=== PATIENT | female | born 1965 ===

== ENCOUNTER 2017-04-23 07:53 | Emergency (ER) | payer OTHER ==
[2017-04-23 08:05] VITALS: RESP 20
--- NOTE | 2017-04-23 08:20 | C.PDOC ---
History Of Present Illness 51 year old female with HTN accompanied by her son presents to the ED c/o upper abdominal and vomit that started this am. As per Son other family members have similar complaints. Patient denies fever, diarrhea. Time Seen by Provider: 04/23/17 07:55 Chief Complaint (Nursing): Abdominal Pain History Per: Patient, Family History/Exam Limitations: language barrier Onset/Duration Of Symptoms: Days (1) Severity: Mild Location Of Pain/Discomfort: Epigastric Radiation Of Pain To:: None Quality Of Discomfort: Dull, Burning Associated Symptoms: Nausea, Vomiting Exacerbating Factors: None Alleviating Factors: None Recent travel outside of the [place]: No Additional History Per: Patient Abnormal Vaginal Bleeding: No Past Medical History Reviewed: Historical Data, Nursing Documentation, Vital Signs Vital Signs: Last Vital Signs Temp 100.5 F H 04/23/17 11:50 Pulse 78 04/23/17 11:50 Resp 20 04/23/17 11:50 BP 99/64 L 04/23/17 11:50 Pulse Ox 100 04/23/17 12:01 - Medical History PMH: Arthritis, HTN Surgical History: No Surg Hx Family History: States: Unknown Family Hx - Social History Hx Tobacco Use: No Hx Alcohol Use: No Hx Substance Use: No - Immunization History Hx Tetanus Toxoid Vaccination: No Hx Influenza Vaccination: No Hx Pneumococcal Vaccination: No Review Of Systems Constitutional: Negative for: Fever Cardiovascular: Negative for: Chest Pain Respiratory: Negative for: Cough Gastrointestinal: Positive for: Nausea, Vomiting, Abdominal Pain Physical Exam - Physical Exam Appears: Non-toxic, No Acute Distress Skin: Normal Color Oral Mucosa: Moist Neck: Normal Cardiovascular: Rhythm Regular Respiratory: Normal Breath Sounds Gastrointestinal/Abdominal: Soft, Tenderness (epigastric) Back: Normal Inspection Extremity: Normal ROM Neurological/Psych: Oriented x3 Gait: Steady ED Course And Treatment - Laboratory Results Result Diagrams: 04/23/17 08:50 04/23/17 08:50 Lab Interpretation: Abnormal Interpretation Of Abnormal: wbc ECG: Interpreted By Ar ECG Rhythm: Sinus Rhythm ECG Interpretation: Normal Rate From EC O2 Sat by Pulse Oximetry: 100 (On RA) Pulse Ox Interpretation: Normal - CT Scan/US CT Abdomen/Pelvis Other Rad Studies (CT/US): Read By Radiologist, Radiology Report Reviewed CT/US Interpretation: FINDINGS: There is limited evaluation of the solid organs without the administration of IV contrast. LOWER THORAX: No visible consolidation, pleural effusion, or pneumothorax. Small hiatal hernia/distal esophageal wall thickening. LIVER: Unremarkable unenhanced appearance. GALLBLADDER AND BILE DUCTS: Unremarkable unenhanced appearance. PANCREAS: Unremarkable unenhanced appearance. SPLEEN: Unremarkable unenhanced appearance. ADRENALS: Unremarkable unenhanced appearance. KIDNEYS AND URETERS : No hydronephrosis or obstructing renal calculus. 4 mm too small to characterize posterior left upper pole renal hypodensity ; statistically likely a cyst. BLADDER: The urinary bladder appears unremarkable. REPRODUCTIVE: Uterus is present. APPENDIX: The appendix appears within normal limits of caliber. High-density noted within the proximal appendix, possibly appendicolith or milk of calcium. No secondary signs of acute appendicitis. BOWEL: The stomach is nondistended. Lack of oral contrast limits evaluation for bowel pathology. The bowel loops appear within normal limits of caliber without evidence of intestinal obstruction. PERITONEUM: No significant free fluid. No definite free air. LYMPH NODES: No bulky lymphadenopathy identified. VASCULATURE: No aortic aneurysm. BONES: Degenerative changes. OTHER FINDINGS: None. IMPRESSION: No acute findings identified. See above. Progress Note: Treated with IVF NSS, zofran, pepcid, and toradol. On re- evaluation abdomen soft feeling better, tolerating PO Reassessment Condition: Improved Medical Decision Making Medical Decision Making: Plan: * IV fluids given * Pepcid 20 mg IVP given * Toradol 30 mg IVP given * Zofran 4 mg IVP given * UA ordered * Blood work ordered * EKG ordered * CT abdo/pelvis ordered Disposition Counseled Patient/Family Regarding: Studies Performed, Diagnosis, Need For Followup, Rx Given - Disposition Referrals: [facility] [Outside] [facility] [Outside] Disposition: HOME/ ROUTINE Disposition Time: 11:45 Condition: STABLE Additional Instructions: Follow up with PMD or clinic for further evaluation Prescriptions: Famotidine/Ca Carb/Mag Hydrox [Pepcid Complete Tablet Chew] 1 each PO BID #12 tab.chew Ondansetron ODT [Zofran ODT] 1 odt PO BID PRN #6 odt PRN Reason: Nausea/Vomiting Instructions: Acute Nausea and Vomiting (ED) Forms: [employer] ([place] Citizen) Print Language: WELSH - POA Present On Arrival: None - Clinical Impression Clinical Impression: Nausea, Vomiting, Abdominal pain - PA / SUPERVISOR [employer] / Resident Statement MD/DO has reviewed & agrees with the documentation as recorded. - Scribe Statement The provider has reviewed the documentation as recorded by the Scribe Orlando Nuñez All medical record entries made by the Aleshaibe were at my direction and personally dictated by me. I have reviewed the chart and agree that the record accurately reflects my personal performance of the history, physical exam, medical decision making, and the department course for this patient. I have also personally directed, reviewed, and agree with the discharge instructions and disposition.
[2017-04-23] MEDS ORDERED: Sodium Chloride 0.9% 1,000 ML IV ONE (08:22)
[2017-04-23] MEDS ORDERED: Sodium Chloride 0.9% 1,000 ML ONE (08:38)
[2017-04-23 09:02] LABS: BASO % 0.2 % (0.0-2.0); EOS # 0.1 K/uL (0.0-0.7); EOS % 0.3 % (0.0-4.0); HEMATOCRIT 43.4 % (34.0-47.0); LYMPH # 3.1 K/uL (1.0-4.3); LYMPH % 14.1 % (20.0-40.0); MEAN CORPUSCULAR HEMOGLOBIN 29.5 pg (27.0-31.0); MEAN PLATELET VOLUME 10.6 fL (7.2-11.7); MONO # 1.7 K/uL (0.0-0.8); MONO % 7.9 % (0.0-10.0); RED CELL DISTRIBUTION WIDTH 13.5 % (11.5-14.5); WHITE BLOOD COUNT 21.6 K/uL (4.8-10.8)
[2017-04-23 09:09] LABS: ALKALINE PHOSPHATASE 57 U/L (38-126); ALT/SGPT 68 U/L (9-52); AST/SGOT 26 U/L (14-36); BILIRUBIN,TOTAL 0.4 mg/dL (0.2-1.3); BLOOD UREA NITROGEN 19 mg/dL (7-17); CALCIUM 8.8 mg/dl (8.6-10.4); CARBON DIOXIDE 32 mmol/L (22-30); CHLORIDE 104 mmol/L (98-107); GFR AFRICAN-AMERICAN > 60; GLUCOSE,RANDOM 117 mg/dL (65-105); POTASSIUM 3.9 mmol/L (3.6-5.2); SODIUM 144 mmol/L (132-148); TOTAL PROTEIN 8.9 g/dL (6.3-8.3)
[2017-04-23 09:13] LABS: ALB/GLOB RATIO 0.8 (1.0-2.1)
[2017-04-23 09:20] LABS: URINE BILIRUBIN NEGATIVE (NEGATIVE); URINE BLOOD NEGATIVE (NEGATIVE); URINE COLOR Yellow (YELLOW); URINE GLUCOSE (UA) NORMAL (Normal); URINE KETONE NEGATIVE (NEGATIVE); URINE LEUKOCYTE ESTERASE NEG Leu/uL (Negative); URINE PROTEIN NEGATIVE (NEGATIVE); URINE UROBILINOGEN NORMAL mg/dL (0.2-1.0)
[2017-04-23 09:29] LABS: WBC URINE 1 /hpf (0-5)
--- NOTE | 2017-04-23 11:11 | CT ---
PROCEDURE: CT Abdomen and Pelvis without Oral or IV contrast. HISTORY: Pain COMPARISON: CT of the abdomen and pelvis with contrast performed 09/28/13 TECHNIQUE: Contiguous axial images of the abdomen and pelvis. No oral or IV contrast administered. Coronal and Sagittal reformats generated. Radiation dose: Total exam DLP = 664.81 mGy-cm. This CT exam was performed using one or more of the following dose reduction techniques: Automated exposure control, adjustment of the mA and/or kV according to patient size, and/or use of iterative reconstruction technique. FINDINGS: There is limited evaluation of the solid organs without the administration of IV contrast. LOWER THORAX: No visible consolidation, pleural effusion, or pneumothorax. Small hiatal hernia/distal esophageal wall thickening. LIVER: Unremarkable unenhanced appearance. GALLBLADDER AND BILE DUCTS: Unremarkable unenhanced appearance. PANCREAS: Unremarkable unenhanced appearance. SPLEEN: Unremarkable unenhanced appearance. ADRENALS: Unremarkable unenhanced appearance. KIDNEYS AND URETERS: No hydronephrosis or obstructing renal calculus. 4 mm too small to characterize posterior left upper pole renal hypodensity ; statistically likely a cyst. BLADDER: The urinary bladder appears unremarkable. REPRODUCTIVE: Uterus is present. APPENDIX: The appendix appears within normal limits of caliber. High-density noted within the proximal appendix, possibly appendicolith or milk of calcium. No secondary signs of acute appendicitis. BOWEL: The stomach is nondistended. Lack of oral contrast limits evaluation for bowel pathology. The bowel loops appear within normal limits of caliber without evidence of intestinal obstruction. PERITONEUM: No significant free fluid. No definite free air. LYMPH NODES: No bulky lymphadenopathy identified. VASCULATURE: No aortic aneurysm. BONES: Degenerative changes. OTHER FINDINGS: None. IMPRESSION: No acute findings identified. See above.
[2017-04-23 11:50] VITALS: BP 99/64; PULSE 78; TEMP 100.5
[2017-04-23 12:02] VITALS: O2SAT 100
--- NOTE | 2017-04-28 03:23 | CARD ---
APPROVED REPORT EKG Measurement Heart [id number] <Conclusion> Normal sinus rhythm Nonspecific T wave abnormality Abnormal ECG
== END 2017-04-23 12:07 | disposition home or self-care (01) ==
LOC: C.ER 07:53
DX: R10.13 Epigastric pain (principal); R11.2 Nausea with vomiting, unspecified
CPT/HCPCS: 74176; 80053; 81001; 83690; 85025; 93005; 96361; 96374; 96375; 99285; J1885; J2405; J7040

== ENCOUNTER 2017-10-09 16:43 | Emergency (ER) | payer OTHER, MEDICAID ==
[2017-10-09] MEDS ORDERED: Promethazine/Cod 6.25mg-10mg/5ml Syr UD PO STA (17:48)
[2017-10-09] MEDS ORDERED: Promethazine/Cod 6.25mg-10mg/5ml Syr UD ONE (18:20)
--- NOTE | 2017-10-09 18:24 | RAD ---
Chest x-ray two views History: Cough. Comparison: 11/08/2015 Findings: Mild venous congestion. Bibasilar breast and nipple shadows. Heart size within normal limits. Degenerative changes in the spine. Impression: Mild venous congestion.
--- NOTE | 2017-10-09 18:34 | C.PDOC ---
History Of Present Illness 52 yo female w/PMhx of asthma come in for evaluation of cold sx for apst 2 weeks associated with nasal congestion, runny nose, productive cough with white sputum. Since yesterday, developed mild chest tightness. Otherwise, pt denies high fever, chills, headache, dizziness, neck pain, drooling, dysphagia, dyspnea , CP, wheezing, abd. pain, V/D, back pain. Ambulate to Ed for evaluation, not in nay apparent distress. Time Seen by Provider: 10/09/17 17:23 Chief Complaint (Nursing): Cough, Cold, Congestion History Per: Patient Onset/Duration Of Symptoms: Gradual Past Medical History Reviewed: Historical Data, Nursing Documentation, Vital Signs Vital Signs: Last Vital Signs Temp 98.6 F 10/09/17 18:50 Pulse 85 10/09/17 18:50 Resp 18 10/09/17 18:50 BP 123/70 10/09/17 18:50 Pulse Ox 100 10/09/17 18:50 - Medical History PMH: Arthritis, HTN Surgical History: No Surg Hx Family History: States: Unknown Family Hx - Social History Hx Tobacco Use: No Hx Alcohol Use: No Hx Substance Use: No - Immunization History Hx Tetanus Toxoid Vaccination: No Hx Influenza Vaccination: No Hx Pneumococcal Vaccination: No Review Of Systems Except As Marked, All Systems Reviewed And Found Negative. Constitutional: Negative for: Fever, Chills ENT: Positive for: Nose Discharge, Nose Congestion. Negative for: Ear Pain, Ear Discharge, Throat Swelling Cardiovascular: Negative for: Chest Pain, Palpitations, Edema, Light Headedness Respiratory: Positive for: Cough, Wheezing. Negative for: Shortness of Breath Gastrointestinal: Negative for: Nausea, Vomiting, Abdominal Pain, Diarrhea Genitourinary: Negative for: Dysuria Musculoskeletal: Negative for: Neck Pain Skin: Negative for: Rash Neurological: Negative for: Altered Mental Status, Headache, Dizziness Physical Exam - Physical Exam Appears: Well, Non-toxic, No Acute Distress Skin: Normal Color, Warm, Dry, No Rash Head: Normacephalic Eye(s): bilateral: PERRL Ear(s): Bilateral: Normal Nose: No Flaring, Discharge (B/L nasal congestion with scant clear rhinorrhea) Oral Mucosa: Moist, No Drooling Tongue: Normal Appearing Lips: Normal Appearing Throat: Erythema (mild B/L), No Exudate, No Drooling Neck: Trachea Midline, Supple Cardiovascular: Rhythm Regular Respiratory: No Decreased Breath Sounds, No Accessory Muscle Use, No Rales, No Rhonchi, No Stridor, Wheezing (scattered Right base exp wheezing) Gastrointestinal/Abdominal: Soft, No Tenderness, No Distention, No Guarding Extremity: Normal ROM, No Deformity, No Swelling Neurological/Psych: Oriented x3, Normal Speech ED Course And Treatment O2 Sat by Pulse Oximetry: 99 Pulse Ox Interpretation: Normal - Radiology CXR: Interpreted by Me, Viewed By Me CXR Interpretation: Yes: No Acute Disease Progress Note: On re-evaluation, pt is afebrile, hemodynamicaly stable. NOn- toxic. Tolerate po well in ED. PulsEOx 99% RA. ENT: no acute findings. neck: SUpple, (-) meningeal sign. Lungs: CTA B/L, BS equal B/L. CVS: (+)S1S2, reg. Abd: benign, (-) guarding, (-) rebound. Neurologicaly intact. CXR (-) acute findings. Pt has clinical findings c/w acute bronchitis, seasonal allergy. Pt advised on course of ds. Ref. to F/u with PMD in 2-3 days for re-eval. return to ED if any worsening or new changes. Disposition Counseled Patient/Family Regarding: Studies Performed, Diagnosis, Need For Followup, Rx Given - Disposition Referrals: Domi Melo MD [Medical Doctor] - Disposition: HOME/ ROUTINE Disposition Time: 18:10 Condition: STABLE Additional Instructions: Encourage fluids Take medication as prescribed Follow up with PMD in 2-3 days for re-evaluation. return to Ed if any worsening or new changes. Prescriptions: Azithromycin [Zithromax] 250 mg PO DAILY #4 tab Benzonatate [Tessalon Perle] 100 mg PO TID #14 capsule Prednisone [Deltasone] 20 mg PO DAILY #3 tablet Instructions: Acute Bronchitis Forms: [employer] ([place]) Print Language: BERMUDIAN - Clinical Impression Clinical Impression: Bronchitis
[2017-10-09 18:50] VITALS: BP 123/70; PULSE 85; RESP 18; TEMP 98.6
[2017-10-10 12:58] VITALS: O2SAT 99
== END 2017-10-09 18:51 | disposition home or self-care (01) ==
LOC: C.ER 16:43
DX: J40 Bronchitis, not specified as acute or chronic (principal); I10 Essential (primary) hypertension

== ENCOUNTER 2017-11-08 00:38 | Emergency (ER) | payer OTHER, MEDICAID ==
--- NOTE | 2017-11-08 01:07 | C.PDOC ---
History Of Present Illness 52 year old female with PMHx of rheumatoid arthritis and lupus presents to the ED for evaluation of right shoulder pain for the past 3 days. Patient reports she is currently being seen by a Supervisor Instrument Maintenance. Patient denies fall, trauma, weakness, numbness, CP, SOB. Chief Complaint (Nursing): Upper Extremity Problem/Injury History Per: Patient History/Exam Limitations: no limitations Onset/Duration Of Symptoms: Days (3) Current Symptoms Are (Timing): Still Present Quality: "Pain" Exacerbating Factor(s): Movement Recent travel outside of the [place]: No Additional History Per: Patient Past Medical History Reviewed: Historical Data, Nursing Documentation, Vital Signs Vital Signs: Last Vital Signs Temp 98.5 F 11/08/17 00:55 Pulse 74 11/08/17 00:55 Resp 20 11/08/17 00:55 BP 123/82 11/08/17 00:55 Pulse Ox 99 11/08/17 03:56 - Medical History PMH: Arthritis, HTN, Rheumatoid Arthritis Other PMH: Lupus Surgical History: No Surg Hx Family History: States: Unknown Family Hx - Social History Hx Tobacco Use: No Hx Alcohol Use: No Hx Substance Use: No - Immunization History Hx Tetanus Toxoid Vaccination: No Hx Influenza Vaccination: No Hx Pneumococcal Vaccination: No Review Of Systems Constitutional: Negative for: Fever, Chills Cardiovascular: Negative for: Chest Pain Respiratory: Negative for: Shortness of Breath Gastrointestinal: Negative for: Nausea, Vomiting Musculoskeletal: Positive for: Shoulder Pain Skin: Negative for: Rash Neurological: Negative for: Weakness, Numbness, Headache Physical Exam - Physical Exam Appears: Non-toxic, No Acute Distress Skin: Normal Color, Warm, Dry Head: Atraumatic, Normacephalic Eye(s): bilateral: Normal Inspection Oral Mucosa: Moist Neck: Normal ROM, Supple Chest: Symmetrical Cardiovascular: Rhythm Regular Respiratory: Normal Breath Sounds, No Rales, No Rhonchi, No Wheezing Gastrointestinal/Abdominal: Soft, No Tenderness, No Guarding, No Rebound Back: Normal Inspection Extremity: Normal ROM, Tenderness (right shoulder ), Capillary Refill (< 2 seconds) Pulses: Left Radial: Normal, Right Radial: Normal Neurological/Psych: Oriented x3, Normal Speech, Normal Motor, Normal Sensation Gait: Steady ED Course And Treatment O2 Sat by Pulse Oximetry: 99 (ON RA) Pulse Ox Interpretation: Normal - Other Rad right shoulder xray X-Ray: Interpreted by Me Interpretation: calcific tendonitis Progress Note: Plan: - Lidoderm 1 ea TD. - Percocet 1 tab PO. - Right shoulder X-Ray Disposition - Disposition Referrals: Priti Flores MD [Staff Provider] - Disposition Time: 03:52 Condition: STABLE Additional Instructions: Follow up with your PMD and Orthopedist within 1-2 days. Return to ED if feel worse. Prescriptions: Lidocaine 5% [Lidoderm] 1 patch TP DAILY #30 patch Naproxen [Naprosyn] 1 tab PO BID PRN #25 tab PRN Reason: Pain Instructions: Calcific Tendonitis of the Shoulder (DC) Forms: [employer] (Faroese) Print Language: CUBAN - Clinical Impression Clinical Impression: Shoulder pain, acute - PA / DATA COORDINATOR / Resident Statement MD/DO has reviewed & agrees with the documentation as recorded. - Scribe Statement The provider has reviewed the documentation as recorded by the Scribe Orlando Nuñez All medical record entries made by the Scribe were at my direction and personally dictated by me. I have reviewed the chart and agree that the record accurately reflects my personal performance of the history, physical exam, medical decision making, and the department course for this patient. I have also personally directed, reviewed, and agree with the discharge instructions and disposition.
[2017-11-08] MEDS ORDERED: Oxycodone/Acetaminophen 5/325 mg Tab PO STA (01:08)
[2017-11-08] MEDS ORDERED: Lidocaine 5% Patch TD STA (01:08)
[2017-11-08] MEDS ORDERED: Oxycodone/Acetaminophen 5/325 mg Tab ONE (01:36)
[2017-11-08] MEDS ORDERED: Lidocaine 5% Patch TD ONE (01:36)
[2017-11-08 04:13] VITALS: BP 109/72; PULSE 68; RESP 18; TEMP 98.9
[2017-11-08 04:50] VITALS: O2SAT 99
--- NOTE | 2017-11-08 17:29 | RAD ---
PROCEDURE: Radiographs of the Right Shoulder HISTORY: pain, atraumatic COMPARISON: No prior. FINDINGS: BONES: Bone alignment and mineralization are normal. There is no acute displaced fracture or bone destruction. JOINTS: Normal. Glenohumeral and acromioclavicular joints preserved. No osteoarthritis. SOFT TISSUES: There is multilobular calcification lateral to the humeral head. OTHER FINDINGS: None. IMPRESSION: No acute fracture or dislocation. Multilobular calcification lateral to the humeral head may represent calcific tendinitis.
== END 2017-11-08 04:14 | disposition home or self-care (01) ==
LOC: C.ER 00:38
DX: M25.511 Pain in right shoulder (principal)

== ENCOUNTER 2017-12-26 17:17 | Emergency (ER) | payer MEDICAID ==
[2017-12-26 17:50] VITALS: BMI 29.7
[2017-12-26 17:53] VITALS: BP 144/78; PULSE 68; RESP 18; TEMP 98.4; O2SAT 98
--- NOTE | 2017-12-26 18:45 | RAD ---
Date of service: 12/26/2017 PROCEDURE: Right Ankle Radiographs. HISTORY: twisted ankle COMPARISON: None FINDINGS: BONES: Normal. No fracture. JOINTS: Normal. No osteoarthritis. Ankle mortise maintained. Talar dome intact SOFT TISSUES: Lateral soft tissue swelling without distal fibular or talar abnormality. OTHER FINDINGS: None. IMPRESSION: Soft tissue swelling without acute articular or osseous abnormality.
--- NOTE | 2017-12-26 18:46 | C.PDOC ---
History Of Present Illness 52 y/o female patient presents to the ER with c/o right ankle pain and swelling. Patient reports she was walking and twisted her ankle yesterday. Pain scale 6/10 on rest but more pain when walking. Patient denies numbness and weakness. Time Seen by Provider: 12/26/17 17:56 Chief Complaint (Nursing): Lower Extremity Problem/Injury History Per: Patient History/Exam Limitations: no limitations Onset/Duration Of Symptoms: Hrs Current Symptoms Are (Timing): Still Present Pain Scale Rating Of: 6 - Ankle/Foot Description Of Injury: Twisted Past Medical History Reviewed: Historical Data, Nursing Documentation, Vital Signs Vital Signs: Last Vital Signs Temp 98.4 F 12/26/17 17:51 Pulse 68 12/26/17 17:51 Resp 18 12/26/17 17:51 BP 144/78 12/26/17 17:51 Pulse Ox 98 12/26/17 18:46 - Medical History PMH: Arthritis, HTN, Rheumatoid Arthritis Family History: States: Unknown Family Hx - Social History Hx Tobacco Use: No Hx Alcohol Use: No Hx Substance Use: No - Immunization History Hx Tetanus Toxoid Vaccination: No Hx Influenza Vaccination: No Hx Pneumococcal Vaccination: No Review Of Systems Except As Marked, All Systems Reviewed And Found Negative. Musculoskeletal: Positive for: Foot Pain (right ankle pain and swelling ) Neurological: Negative for: Weakness, Numbness Physical Exam - Physical Exam Appears: Well, Non-toxic, No Acute Distress Skin: Normal Color, Warm, Dry Head: Atraumatic, Normacephalic Respiratory: No Accessory Muscle Use, Other (speaking in full sentences) Extremity: Tenderness (lateral malleolus ), No Pedal Edema, No Calf Tenderness, Capillary Refill (<2 sec), No Deformity, Swelling (lateral malleolus ) Extremity: Right: Painful To Bear Weight Pulses: Left Dorsalis Pedis: Normal, Right Dorsalis Pedis: Normal Neurological/Psych: Oriented x3, Normal Speech ED Course And Treatment O2 Sat by Pulse Oximetry: 98 (RA) Pulse Ox Interpretation: Normal Medical Decision Making Medical Decision Making: Impression: right ankle pain and swelling on lateral malleolus. Plans: -- Ibuprofen -- XR right ankle Reassess: TERRANCE wrap was placed on right ankle. Patient is resting comfortably and reports she is feeling better. Pateint is discharged with motrin and is advised to f/u with neighborhood clinic in 1-2 days. Disposition Counseled Patient/Family Regarding: Studies Performed, Diagnosis, Need For Followup, Rx Given - Disposition Referrals: [facility] [Outside] Disposition: HOME/ ROUTINE Disposition Time: 18:44 Condition: STABLE Prescriptions: Ibuprofen [Motrin] 600 mg PO TID #12 tab Instructions: Ankle Sprain (DC) Forms: Gen Discharge Inst Mal[place]ian, [employer] (Mal[place]ian) - Clinical Impression Clinical Impression: Right ankle sprain - Scribe Statement The provider has reviewed the documentation as recorded by the Surendra Noel Do Provider Attestation: All medical record entries made by the Aleshaibshantell were at my direction and personally dictated by me. I have reviewed the chart and agree that the record accurately reflects my personal performance of the history, physical exam, medical decision making, and the department course for this patient. I have also personally directed, reviewed, and agree with the discharge instructions and disposition.
== END 2017-12-26 18:51 | disposition home or self-care (01) ==
LOC: C.ER 17:17
DX: S93.401A Sprain of unspecified ligament of right ankle, initial encounter (principal); X50.1XXA Overexertion from prolonged static or awkward postures, initial encounter; Y93.01 Activity, walking, marching and hiking; I10 Essential (primary) hypertension; M06.9 Rheumatoid arthritis, unspecified

== ENCOUNTER 2018-06-24 23:26 | Emergency (ER) | payer MEDICAID, OTHER ==
[2018-06-24 23:26] VITALS: BMI 29.7
[2018-06-24 23:31] VITALS: BP 139/83; PULSE 84; TEMP 98.4; O2SAT 100
--- NOTE | 2018-06-25 00:11 | C.PDOC ---
History Of Present Illness 53 year old female presents with right shoulder pain. Patient had MRI of right shoulder in 02/2018, found to have tear, at the time she had insurance but now has medicare and has not been able to follow up with her orthopedist. She reports having pain with lifting and now the pain is radiating into her neck and arm. She has been taking motrin with no relief. Denies new injury, chest pain, SOB, or weakness. Chief Complaint (Nursing): Upper Extremity Problem/Injury History Per: Patient History/Exam Limitations: no limitations Onset/Duration Of Symptoms: Days Current Symptoms Are (Timing): Still Present Exacerbating Factor(s): Strenuous Use Of Affected Area Recent travel outside of the [place]: No Past Medical History Reviewed: Historical Data, Nursing Documentation, Vital Signs Vital Signs: Last Vital Signs Temp 98.4 F 06/24/18 23:29 Pulse 84 06/24/18 23:29 Resp 16 06/24/18 23:29 BP 139/83 06/24/18 23:29 Pulse Ox 100 06/24/18 23:29 - Medical History PMH: Arthritis, HTN, Rheumatoid Arthritis Family History: States: Unknown Family Hx - Social History Hx Tobacco Use: No Hx Alcohol Use: No Hx Substance Use: No - Immunization History Hx Tetanus Toxoid Vaccination: No Hx Influenza Vaccination: No Hx Pneumococcal Vaccination: No Review Of Systems Constitutional: Negative for: Fever, Chills Eyes: Negative for: Pain, Redness ENT: Negative for: Mouth Swelling Cardiovascular: Negative for: Chest Pain, Palpitations Respiratory: Negative for: Cough, Shortness of Breath Gastrointestinal: Negative for: Nausea, Vomiting, Diarrhea Genitourinary: Negative for: Dysuria, Hematuria Musculoskeletal: Positive for: Shoulder Pain (right). Negative for: Back Pain Skin: Negative for: Rash Neurological: Negative for: Weakness, Numbness Physical Exam - Physical Exam Appears: Non-toxic, No Acute Distress Skin: Normal Color, Warm, No Rash Head: Atraumatic, Normacephalic Eye(s): bilateral: Normal Inspection Neck: Normal ROM, No Midline Cervical Tenderness, No Paracervical Tenderness, Supple Chest: Symmetrical Respiratory: No Accessory Muscle Use, Other (Normal inspiratory effort) Gastrointestinal/Abdominal: Soft, No Distention Extremity: Capillary Refill (<2 seconds), No Deformity, No Swelling, Other (Increased pain to right shoulder with passive and active ROM, tenderness with palpation to right shoulder, distal sensation intact, good telemedicine physician strength.) Pulses: Left Radial: Normal, Right Radial: Normal Neurological/Psych: Oriented x3, Normal Speech, Normal Cranial Nerves (Grossly intact), Normal Motor, Normal Sensation Gait: Steady ED Course And Treatment O2 Sat by Pulse Oximetry: 100 (Room air) Pulse Ox Interpretation: Normal Medical Decision Making Medical Decision Making: Patient with worsening right shoulder pain, will place in sling, tramadol given to take along with motrin, and ortho referral given. Disposition Counseled Patient/Family Regarding: Diagnosis, Need For Followup, Rx Given - Disposition Referrals: Fiordaliza Stringer MD [Staff Provider] - Disposition: HOME/ ROUTINE Disposition Time: 00:10 Condition: STABLE Prescriptions: traMADol [Ultram] 50 mg PO TID PRN #15 tab PRN Reason: Pain, Severe (8-10) Instructions: Shoulder Pain (DC) Forms: Gen Discharge Inst Danish, [employer] (Danish) Print Language: HEBREW - Clinical Impression Clinical Impression: Shoulder pain, right - PA / CREDIT REVIEW ANALYST / Resident Statement MD/DO has reviewed & agrees with the documentation as recorded. - Scribe Statement The provider has reviewed the documentation as recorded by the Scribe Rafa Brown All medical record entries made by the Scribe were at my direction and personally dictated by me. I have reviewed the chart and agree that the record accurately reflects my personal performance of the history, physical exam, medical decision making, and the department course for this patient. I have also personally directed, reviewed, and agree with the discharge instructions and disposition.
[2018-06-25 00:25] VITALS: RESP 20
== END 2018-06-25 00:24 | disposition home or self-care (01) ==
LOC: C.ER 23:26
DX: M25.511 Pain in right shoulder (principal); I10 Essential (primary) hypertension; M06.9 Rheumatoid arthritis, unspecified

== ENCOUNTER 2018-09-12 20:38 | Emergency (ER) | payer OTHER ==
[2018-09-12 20:39] VITALS: BMI 29.7
[2018-09-12 21:33] VITALS: RESP 18
--- NOTE | 2018-09-12 22:47 | C.PDOC ---
History Of Present Illness 53 year old female with PMHx of HTN, lupus and Rheumatoid arthritis presents to the ED c/o lower back pain since last night. Patient reports pain worsens with bending down, movement and lifting. Patient states she took Ibuprofen 600 mg with minimal relief to symptoms. Patient denies fever, chills, nausea, vomit, diarrhea, rash, dysuria, hematrua, urinary or bowel incontinence. Time Seen by Provider: 09/12/18 21:57 Chief Complaint (Nursing): Back Pain History Per: Patient History/Exam Limitations: no limitations Onset/Duration Of Symptoms: Days (1) Current Symptoms Are (Timing): Still Present Quality Of Discomfort: "Pain" Exacerbating Factor(s): Movement Recent travel outside of the [place]: No Additional History Per: Patient Past Medical History Reviewed: Historical Data, Nursing Documentation, Vital Signs Vital Signs: Last Vital Signs Temp 98.0 F 09/12/18 21:31 Pulse 67 09/12/18 21:31 Resp 18 09/12/18 21:31 BP 133/78 09/12/18 21:31 Pulse Ox 98 09/12/18 21:31 - Medical History PMH: Arthritis, HTN, Rheumatoid Arthritis Denies: Chronic Kidney Disease Other PMH: lupus Surgical History: No Surg Hx Family History: States: Unknown Family Hx - Social History Hx Tobacco Use: No Hx Alcohol Use: No Hx Substance Use: No - Immunization History Hx Tetanus Toxoid Vaccination: No Hx Influenza Vaccination: No Hx Pneumococcal Vaccination: No Review Of Systems Constitutional: Negative for: Fever, Chills Cardiovascular: Negative for: Chest Pain Respiratory: Negative for: Shortness of Breath Gastrointestinal: Negative for: Nausea, Vomiting, Abdominal Pain Genitourinary: Negative for: Dysuria, Hematuria Musculoskeletal: Positive for: Back Pain Skin: Negative for: Rash Neurological: Negative for: Weakness, Numbness, Headache, Dizziness Physical Exam - Physical Exam Appears: Non-toxic, No Acute Distress Skin: Normal Color, Warm, Dry, No Rash Head: Atraumatic, Normacephalic Eye(s): bilateral: Normal Inspection Neck: Normal ROM, Supple Chest: Symmetrical Cardiovascular: Rhythm Regular Respiratory: Normal Breath Sounds, No Rales, No Rhonchi, No Wheezing Gastrointestinal/Abdominal: Soft, No Tenderness, No Guarding, No Rebound Back: No Vertebral Tenderness, Paraspinal Tenderness (paralumbar, sacral), No Straight Leg Raising Extremity: Normal ROM, No Tenderness Neurological/Psych: Oriented x3, Normal Speech, Normal Cognition Gait: Steady ED Course And Treatment O2 Sat by Pulse Oximetry: 98 (ON RA) Pulse Ox Interpretation: Normal Progress Note: Plan: - Flexeril 10 mg PO. - Toradol 30 mg IM. Patient is resting comfortably, is no longer having back pain, no fever, no bony tenderness, no numbness, no weakness, or abdominal pain. Patient is ambulatory in the emergency department with no signs of discomfort. Patient was advised to follow up with their physician in 1-2 days. Disposition Counseled Patient/Family Regarding: Diagnosis, Need For Followup, Rx Given - Disposition Referrals: [facility] [Outside] Disposition: HOME/ ROUTINE Disposition Time: 22:59 Condition: STABLE Additional Instructions: Please follow up in clinic Take medications as prescribed Return to ER if worse Prescriptions: Cyclobenzaprine [Cyclobenzaprine HCl] 10 mg PO HS #10 tab Ibuprofen [Motrin] 600 mg PO Q6H #30 tab Instructions: Low Back Pain (DC) Forms: [employer] (Croatian) Print Language: LATVIAN - Clinical Impression Clinical Impression: Low back pain - PA / HOME HEALTH CAREGIVER / Resident Statement MD/DO has reviewed & agrees with the documentation as recorded. - Scribe Statement The provider has reviewed the documentation as recorded by the Scribe Orlando Nuñez All medical record entries made by the Aleshaibshantell were at my direction and personally dictated by me. I have reviewed the chart and agree that the record accurately reflects my personal performance of the history, physical exam, medical decision making, and the department course for this patient. I have also personally directed, reviewed, and agree with the discharge instructions and disposition.
[2018-09-12 23:16] VITALS: BP 136/74; PULSE 74; TEMP 98.2
[2018-09-13 05:02] VITALS: O2SAT 98
== END 2018-09-12 23:17 | disposition home or self-care (01) ==
LOC: C.ER 20:38
DX: M54.5 Low back pain (principal); M06.9 Rheumatoid arthritis, unspecified; I10 Essential (primary) hypertension; M32.9 Systemic lupus erythematosus, unspecified
CPT/HCPCS: 96372; 99283; J1885